=== PATIENT | male | born 1985 | race Caucasian/White ===

== ENCOUNTER 2020-07-17 10:21 | Inpatient (IN) | payer OTHER ==
[2020-07-17 10:52] LABS: Hemoglobin 13.5 g/dL (13.5-17.5); MDiff Complete? YES; Mean Corpuscular HGB CONC 33.1 g/dL (32.0-36.0); Mean Corpuscular Hemoglobin 29.9 pg (27.0-33.0); Mean Corpuscular Volume 90.3 fl (81.2-95.1); Mean Platelet Volume 9.9 fl (7.4-10.4); Platelet Count 241 10x3/uL (150-450); Red Blood Cell (RBC) Count 4.52 10x6/uL (4.32-5.72); White Blood Cell (WBC) Count 23.5 10x3/uL (3.5-10.5)
[2020-07-17 11:08] LABS: ALT (SGPT) 36 U/L (8-55); AST (SGOT) 24 U/L (5-34); Alkaline Phosphatase 72 U/L (40-110); Anion Gap 13 mmol/L (10-20); BUN (Urea Nitrogen) 17 mg/dL (8.9-20.6); Bilirubin, Total 1.4 mg/dL (0.2-1.2); Calc. Creatinine Clearance 0 mL/min (70-130); Calcium 8.9 mg/dL (7.8-10.44); Carbon Dioxide 25 mmol/L (22-29); Chloride 103 mmol/L (98-107); Globulin 2.8 g/dL (2.4-3.5); Glucose 118 mg/dL (70-105); Potassium 4.2 mmol/L (3.5-5.1); Protein, Total 6.8 g/dL (6.0-8.3); Sodium 137 mmol/L (136-145)
[2020-07-17 11:22] LABS: Band 1 % (5-11); Lymphocytes 12 % (21-51); Monocytes 8 % (0-10); Neutrophil 79 % (42-75)
[2020-07-17 11:24] LABS: Platelet Morphology Comment Appears Adequate
[2020-07-17] MEDS ORDERED: Cefepime 2 GM VIAL ONE (11:29)
[2020-07-17] MEDS ORDERED: Ketorolac Tromethamine 15 MG/ML VIAL ONE (11:29)
[2020-07-17 13:09] LABS: Bilirubin Neg (Negative); Blood, Urine Negative (Negative); Clarity Clear (Clear); Glucose, Urine (Dipstick) Normal (Negative); Ketone, Urine Negative (Negative); Leukocyte Negative (Negative); Nitrite Negative (Negative); Protein, Urine (Dipstick) Negative (Neg-Trace); Urobilinogen Normal mg/dL (Less than 2)
[2020-07-17 17:27] VITALS: BMI 61.7
[2020-07-17] MEDS ORDERED: Dextrose 50% Abboject 50 ML SYRINGE SLOW IVP PRN (18:01)
[2020-07-17] MEDS ORDERED: Dextrose 5% in Water 1,000 ML IV PRN (18:01)
[2020-07-17] MEDS ORDERED: Ondansetron ODT 4 MG TAB PO PRN (18:01)
[2020-07-17] MEDS ORDERED: Acetaminophen 325 MG TAB PO PRN (18:01)
[2020-07-17] MEDS ORDERED: HYDROcodone/Acetaminophen 5/325 mg Tablet PO PRN (18:01)
[2020-07-17] MEDS ORDERED: Senokot S 8.6-50 MG TAB PO PRN (18:01)
[2020-07-17] MEDS ORDERED: Ondansetron PF 4 MG/2 ML Vial IVP PRN (18:01)
[2020-07-17] MEDS ORDERED: HumaLOG 300 UNITS/3 ML VIAL SC PRN (18:01)
[2020-07-17] MEDS ORDERED: VANCOMYCIN 2 GRAM/400 ML BAG 2 GM in Premix Bag 1 BAG IVPB SCH (21:00)
[2020-07-17] MEDS: Cefepime 2 GM in Sodium Chloride 0.9% 100 ML IVPB SCH (23:36)
[2020-07-18] MEDS: VANCOMYCIN 1.75 GM/350 ML BAG 1.75 GM in Premix Bag 1 BAG IVPB SCH ×2 (06:00→15:33)
[2020-07-18] MEDS: Levothyroxine Sodium 100 MCG TAB PO SCH (06:03)
[2020-07-18 06:37] LABS: #Monocytes 0.9 10x3/uL (0.0-1.1); #Neutrophils 5.3 10x3/uL (1.5-8.4); %Basophils 0.4 % (0.0-2.0); %Eosinophils 0.4 % (0.0-6.0); %Monocytes 9.9 % (0.0-10.0); Hemoglobin 12.8 g/dL (13.5-17.5); Mean Corpuscular HGB CONC 32.4 g/dL (32.0-36.0); Mean Corpuscular Hemoglobin 29.6 pg (27.0-33.0); Mean Corpuscular Volume 91.4 fl (81.2-95.1); Mean Platelet Volume 10.2 fl (7.4-10.4); Platelet Count 209 10x3/uL (150-450); RBC Distribution Width 14.4 % (11.5-14.5); Red Blood Cell (RBC) Count 4.32 10x6/uL (4.32-5.72)
[2020-07-18 06:42] LABS: Anion Gap 13 mmol/L (10-20); BUN (Urea Nitrogen) 16 mg/dL (8.9-20.6); Calc. Creatinine Clearance 303 mL/min (70-130); Calcium 8.5 mg/dL (7.8-10.44); Carbon Dioxide 21 mmol/L (22-29); Chloride 106 mmol/L (98-107); Glucose 111 mg/dL (70-105); Potassium 3.9 mmol/L (3.5-5.1); Sodium 136 mmol/L (136-145)
[2020-07-18] MEDS: Saccharomyces boulardii 250 MG CAP PO SCH (08:30)
[2020-07-18] MEDS: Furosemide 40 MG TAB PO SCH (08:30)
[2020-07-18] MEDS: Enoxaparin Sodium 40 MG/0.4 ML SYRINGE SC SCH (08:30)
[2020-07-18] MEDS: metFORMIN 500 MG TAB PO SCH ×2 (08:30→18:16)
[2020-07-18] MEDS: Cefepime 2 GM in Sodium Chloride 0.9% 100 ML IVPB SCH (11:19)
[2020-07-18 11:39] LABS: Hemoglobin A1c 5.3 % (4.0-6.0)
[2020-07-18 17:52] LABS: SARS-CoV-2 PCR by NAA Not Detected (NotDetected)
[2020-07-19] MEDS: VANCOMYCIN 1.75 GM/350 ML BAG 1.75 GM in Premix Bag 1 BAG IVPB SCH ×4 (01:39→21:55)
[2020-07-19] MEDS: Cefepime 2 GM in Sodium Chloride 0.9% 100 ML IVPB SCH ×2 (03:35→11:02)
[2020-07-19 05:22] LABS: #Eosinphils 0.3 10x3/uL (0.0-0.5); #Monocytes 0.8 10x3/uL (0.0-1.1); #Neutrophils 5.9 10x3/uL (1.5-8.4); %Basophils 0.3 % (0.0-2.0); %Eosinophils 2.7 % (0.0-6.0); %Lymphocytes 23.1 % (18.0-47.0); %Monocytes 9.2 % (0.0-10.0); %Neutrophils 64.4 % (40.0-75.0); Hemoglobin 12.9 g/dL (13.5-17.5); Mean Corpuscular HGB CONC 32.8 g/dL (32.0-36.0); Mean Corpuscular Volume 91.4 fl (81.2-95.1); Mean Platelet Volume 10.3 fl (7.4-10.4); Platelet Count 220 10x3/uL (150-450); RBC Distribution Width 14.3 % (11.5-14.5); White Blood Cell (WBC) Count 9.1 10x3/uL (3.5-10.5)
[2020-07-19 05:42] LABS: Anion Gap 13 mmol/L (10-20); BUN (Urea Nitrogen) 15 mg/dL (8.9-20.6); Calc. Creatinine Clearance 328 mL/min (70-130); Calcium 8.5 mg/dL (7.8-10.44); Carbon Dioxide 23 mmol/L (22-29); Chloride 105 mmol/L (98-107); Glucose 109 mg/dL (70-105); Potassium 3.8 mmol/L (3.5-5.1); Sodium 137 mmol/L (136-145)
[2020-07-19] MEDS: Furosemide 40 MG TAB PO SCH (06:31)
[2020-07-19] MEDS: Levothyroxine Sodium 100 MCG TAB PO SCH (07:01)
[2020-07-19] MEDS: metFORMIN 500 MG TAB PO SCH ×2 (08:33→18:03)
[2020-07-19] MEDS: Enoxaparin Sodium 40 MG/0.4 ML SYRINGE SC SCH (08:33)
[2020-07-19] MEDS: Saccharomyces boulardii 250 MG CAP PO SCH (08:33)
[2020-07-20] MEDS: Cefepime 2 GM in Sodium Chloride 0.9% 100 ML IVPB SCH ×2 (00:17→11:44)
[2020-07-20] MEDS: VANCOMYCIN 1.75 GM/350 ML BAG 1.75 GM in Premix Bag 1 BAG IVPB SCH (06:06)
[2020-07-20] MEDS: Levothyroxine Sodium 100 MCG TAB PO SCH (06:07)
[2020-07-20] MEDS: Furosemide 40 MG TAB PO SCH (07:21)
[2020-07-20] MEDS: Enoxaparin Sodium 40 MG/0.4 ML SYRINGE SC SCH (09:07)
[2020-07-20] MEDS: Saccharomyces boulardii 250 MG CAP PO SCH (09:07)
[2020-07-20] MEDS: metFORMIN 500 MG TAB PO SCH ×2 (09:07→17:32)
[2020-07-20] MEDS ORDERED: Vancomycin 1.5 GRAM/300 ML BAG 1.5 GM in Premix Bag 1 BAG IVPB SCH (14:00)
[2020-07-20] MEDS: Cephalexin 500 MG CAP PO SCH (17:32)
[2020-07-21] MEDS: Cephalexin 500 MG CAP PO SCH ×3 (00:03→11:38)
[2020-07-21 06:50] LABS: #Eosinphils 0.2 10x3/uL (0.0-0.5); #Monocytes 0.6 10x3/uL (0.0-1.1); #Neutrophils 4.2 10x3/uL (1.5-8.4); %Basophils 0.6 % (0.0-2.0); %Eosinophils 3.3 % (0.0-6.0); %Lymphocytes 26.6 % (18.0-47.0); %Monocytes 8.9 % (0.0-10.0); %Neutrophils 60.3 % (40.0-75.0); Hemoglobin 13.5 g/dL (13.5-17.5); Mean Corpuscular HGB CONC 33.2 g/dL (32.0-36.0); Mean Corpuscular Volume 90.4 fl (81.2-95.1); Mean Platelet Volume 9.8 fl (7.4-10.4); Platelet Count 259 10x3/uL (150-450); White Blood Cell (WBC) Count 6.9 10x3/uL (3.5-10.5)
[2020-07-21 06:51] LABS: Anion Gap 13 mmol/L (10-20); BUN (Urea Nitrogen) 15 mg/dL (8.9-20.6); Calc. Creatinine Clearance 303 mL/min (70-130); Calcium 9.1 mg/dL (7.8-10.44); Carbon Dioxide 25 mmol/L (22-29); Chloride 106 mmol/L (98-107); Glucose 108 mg/dL (70-105); Potassium 4.1 mmol/L (3.5-5.1); Sodium 140 mmol/L (136-145)
[2020-07-21] MEDS: Furosemide 40 MG TAB PO SCH (07:42)
[2020-07-21] MEDS: Levothyroxine Sodium 100 MCG TAB PO SCH (07:42)
[2020-07-21] MEDS: Saccharomyces boulardii 250 MG CAP PO SCH (08:41)
[2020-07-21] MEDS: metFORMIN 500 MG TAB PO SCH (08:41)
[2020-07-21] MEDS: Enoxaparin Sodium 40 MG/0.4 ML SYRINGE SC SCH (08:41)
[2020-07-21 12:03] VITALS: BP 111/68; TEMP 98.7
== END 2020-07-21 12:04 | disposition home or self-care (01) | DRG 872 ==
LOC: CSHERS 10:21 → CSHTELE 12:40
PROVIDERS: ADMIT Internal Medicine; ATTEND Family Medicine
DX: A41.9 Sepsis, unspecified organism (principal); L03.116 Cellulitis of left lower limb; Z68.44 Body mass index [BMI] 60.0-69.9, adult; E03.9 Hypothyroidism, unspecified; E66.01 Morbid (severe) obesity due to excess calories; E11.9 Type 2 diabetes mellitus without complications; Z20.822 Contact with and (suspected) exposure to COVID-19; Z79.84 Long term (current) use of oral hypoglycemic drugs; Z79.890 Hormone replacement therapy; Z79.899 Other long term (current) drug therapy; I89.0 Lymphedema, not elsewhere classified
CPT/HCPCS: 36415; 36416; 71045; 80048; 80053; 80202; 81003; 82565; 83036; 83605; 84520; 85025; 85652; 86140; 87040; 87635; 93005; 93970; 96365; 96367; 96375; J0692; J1650; J1885; J3370; J3490; U0003; U0005

== ENCOUNTER 2021-07-25 16:38 | Emergency (ER) | payer OTHER ==
[2021-07-25] MEDS ORDERED: Lidocaine 2% PF 100 mg/5 ml Syringe ONE (18:59)
[2021-07-25] MEDS ORDERED: Morphine 4 MG/ML VIAL ONE (19:46)
[2021-07-25] MEDS ORDERED: Bacitracin 1 PK ONE (23:55)
== END 2021-07-26 00:15 | disposition home or self-care (01) ==
LOC: CSHERS 16:38
DX: S91.312A Laceration without foreign body, left foot, initial encounter (principal); E03.9 Hypothyroidism, unspecified; E11.9 Type 2 diabetes mellitus without complications; X58.XXXA Exposure to other specified factors, initial encounter
CPT/HCPCS: 12001; 36416; 71045; 93005; 96372; J2001; J2270

== ENCOUNTER 2022-01-19 17:44 | Emergency (ER) | payer OTHER ==
[2022-01-19 21:07] LABS: #Eosinphils 0.2 10x3/uL (0.0-0.5); #Monocytes 0.7 10x3/uL (0.0-1.1); #Neutrophils 3.4 10x3/uL (1.5-8.4); %Basophils 0.5 % (0.0-2.0); %Eosinophils 2.5 % (0.0-6.0); %Lymphocytes 32.2 % (18.0-47.0); %Monocytes 10.4 % (0.0-10.0); %Neutrophils 54.2 % (40.0-75.0); Hemoglobin 14.9 g/dL (13.5-17.5); Mean Corpuscular HGB CONC 33.4 g/dL (32.0-36.0); Mean Corpuscular Hemoglobin 30.1 pg (27.0-33.0); Mean Corpuscular Volume 90.1 fl (81.2-95.1); Mean Platelet Volume 11.1 fl (7.4-10.4); Platelet Count 194 10x3/uL (150-450); RBC Distribution Width 13.7 % (11.5-14.5); Red Blood Cell (RBC) Count 4.95 10x6/uL (4.32-5.72); White Blood Cell (WBC) Count 6.3 10x3/uL (3.5-10.5)
[2022-01-19 21:19] LABS: ALT (SGPT) 26 U/L (8-55); AST (SGOT) 22 U/L (5-34); Albumin 4.5 g/dL (3.5-5.0); Alkaline Phosphatase 76 U/L (40-110); Anion Gap 15 mmol/L (10-20); BUN (Urea Nitrogen) 18 mg/dL (8.9-20.6); Bilirubin, Total 1.2 mg/dL (0.2-1.2); Calc. Creatinine Clearance 0 mL/min (70-130); Calcium 9.7 mg/dL (7.8-10.44); Carbon Dioxide 25 mmol/L (22-29); Chloride 105 mmol/L (98-107); Estimated GFR 114; Globulin 2.9 g/dL (2.4-3.5); Glucose 94 mg/dL (70-105); Potassium 3.9 mmol/L (3.5-5.1); Protein, Total 7.4 g/dL (6.0-8.3); Sodium 141 mmol/L (136-145)
== END 2022-01-19 20:44 | disposition home or self-care (01) ==
LOC: CSHERS 17:44
DX: L03.116 Cellulitis of left lower limb (principal); E11.9 Type 2 diabetes mellitus without complications
CPT/HCPCS: 80053; 85025